=== PATIENT | male | born 1965 | race Caucasian/White ===

== ENCOUNTER → 2019-05-06 | Outpatient (CLI) | payer BC ==
[~2019-05-06] MED LIST: AMBIEN 10 MG TA10 MG PO; CIPROFLOXACIN500 M1 PO; LEXAPRO 10 MG T10 MG PO; PERCOCET 5-3251 EACH PO; ZOFRAN4 MG PO
== END ==
LOC: M.ULTRA 15:23
DX: I65.23 Occlusion and stenosis of bilateral carotid arteries (principal); I25.10 Atherosclerotic heart disease of native coronary artery without angina pectoris; I10 Essential (primary) hypertension; R42 Dizziness and giddiness

== ENCOUNTER → 2021-09-27 | Outpatient (CLI) | payer BC | LOC: M.PUL 09-15 13:30 | PROVIDERS: ATTEND Family Medicine | DX: F51.01 Primary insomnia (principal) ==